=== PATIENT | female | born 1935 | race Caucasian/White ===

== ENCOUNTER 2019-12-07 10:37 | Inpatient (IN) | payer MEDICARE, OTHER ==
[2019-12-07] MEDS ORDERED: Morphine 4 MG/ML VIAL ONE ×2 (11:08→11:59)
--- NOTE | 2019-12-07 11:19 | RAD ---
CHEST ONE VIEW: History: Injury from trauma. Comparison: 08-02-02 FINDINGS: Heart size is normal. The lungs are clear. No confluent pneumonia, overt edema, or pleural effusion. IMPRESSION: No significant acute intrathoracic disease. POS: [facility]
--- NOTE | 2019-12-07 11:20 | RAD ---
AP PELVIS ONE VIEW: History: Injury from trauma, pain following a fall. FINDINGS: There is evidence for an irregular fracture through the left femoral neck with some displacement and foreshortening. The pelvis otherwise appears intact. The right hip appears unremarkable. IMPRESSION: Irregular minimally displaced left femoral neck fracture with foreshortening and varus deformity. POS: [facility]
--- NOTE | 2019-12-07 11:21 | RAD ---
LEFT HIP TWO VIEWS: History: Injury from a fall. FINDINGS: Minimally displaced irregular fracture through the left femoral neck with foreshortening and varus de formity. Minimally displaced irregular fracture through the left femoral neck with some foreshortening and mine us deformity. POS: [facility]
[2019-12-07 11:35] LABS: #Lymphocytes 0.9 thou/uL (1.20-3.40); #Monocytes 0.7 thou/uL (0.11-0.59); #Neutrophils 9.7 thou/uL (1.40-6.50); %Basophils 0.1 % (0.0-1.0); %Eosinophils 0.2 % (0.0-10.0); %Lymphocytes 7.6 % (21.0-51.0); %Monocytes 6.6 % (0.0-10.0); %Neutrophils 85.5 % (42.0-75.0); Hemoglobin 14.8 g/dL (12.0-16.0); Mean Corpuscular Hemoglobin 31.1 pg (27.0-31.0); Mean Corpuscular Volume 94.3 fL (78.0-98.0); Platelet Count 179 thou/uL (130-400); RBC Distribution Width 11.4 % (11.5-14.5); Red Blood Cell (RBC) Count 4.77 mill/uL (4.20-5.40); White Blood Cell (WBC) Count 11.3 thou/uL (4.8-10.8)
[2019-12-07 11:37] LABS: INR-International Normal Ratio 1.2; PTT 25.2 SEC (22.9-36.1)
--- NOTE | 2019-12-07 11:40 | CT ---
BRAIN CT WITHOUT IV CONTRAST: History: Injury from trauma. Patient is on blood thinners. FINDINGS: No focal mass or midline shift. No intra or extraaxial hemorrhage. Sinuses and mastoids are clear of acute process. IMPRESSION: No significant acute intracranial process. No mass or bleed. Mild atrophy. POS: [facility]
[2019-12-07 11:51] LABS: ALT (SGPT) 21 U/L (8-55); AST (SGOT) 25 U/L (5-34); Albumin 4.4 g/dL (3.4-4.8); Alkaline Phosphatase 122 U/L (40-110); Anion Gap 17 mmol/L (10-20); BUN (Urea Nitrogen) 19 mg/dL (9.8-20.1); Bilirubin, Total 0.9 mg/dL (0.2-1.2); Calc. Creatinine Clearance 0 mL/min (70-130); Calcium 9.4 mg/dL (7.8-10.44); Carbon Dioxide 21 mmol/L (23-31); Chloride 101 mmol/L (98-107); Estimated GFR-MDRD 56; Globulin 3.7 g/dL (2.4-3.5); Glucose 148 mg/dL (83-110); Potassium 4.5 mmol/L (3.5-5.1); Protein, Total 8.1 g/dL (6.0-8.3); Sodium 134 mmol/L (136-145)
[2019-12-07] MEDS ORDERED: Ondansetron ODT 4 MG TAB SL PRN (12:00)
[2019-12-07] MEDS ORDERED: Ondansetron PF 4 MG/2 ML Vial IVP PRN ×2 (12:00→15:29)
[2019-12-07] MEDS ORDERED: Labetalol HCl 100 MG/20 ML VIAL ONE (12:23)
--- NOTE | 2019-12-07 12:34 | CT ---
CERVICAL SPINE CT SCAN WITHOUT IV CONTRAST: History: Injury from trauma. FINDINGS: Multilevel disc osteophytosis and facet arthrosis with some variable severity canal, lateral recess a nd foraminal stenosis. No evidence for acute fracture or facet dislocation. No prevertebral soft tiss ue swelling. IMPRESSION: No fracture, dislocation, or other acute process. POS: [facility]
--- NOTE | 2019-12-07 12:34 | CT ---
LUMBAR SPINE CT SCAN WITHOUT IV CONTRAST: History: Injury from trauma. FINDINGS: Multilevel disc osteophytosis most marked at L4-5 with moderate to severe associated canal and latera l recess and foraminal stenosis. Moderate stenosis at the L3-4 level. Extensive facet arthrosis. No e vidence for acute fracture or dislocation. IMPRESSION: No acute fracture or dislocation. 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 POS: [facility]
--- NOTE | 2019-12-07 14:36 | HP ---
REQUESTING PHYSICIAN: Dr. Hodge. ATTENDING SURGEON: Dr. Sanchez. CONSULTATIONS: Orthopedics, Dr. Claudio. HISTORY OF PRESENT ILLNESS: The patient is an 84-year-old woman, who was in her living room, moving a blanket when she stepped on it causing her to slip and fall onto her left hip. Unfortunately, it was late at night and she was away from her , who could not hear her and she was not found until the next morning. The patient denied loss of consciousness or hitting her head. She was just unable to ambulate or contact her . She was eventually brought to the emergency department by ground EMS, where she underwent evaluation and examination and was noted to have a left hip fracture, at which time we were asked to evaluate the patient for admission and obtain Orthopedic consultation. ALLERGIES: NONE. CURRENT MEDICATIONS: 1. Simvastatin. 2. Lorazepam. 3. Trazodone. 4. Spironolactone. 5. Librax. 6. Amlodipine. 7. Metoprolol. 8. Savaysa. 9. Furosemide. 10. Fluoxetine. 11. L-thyroxine. PAST MEDICAL HISTORY: Hypothyroidism, hyperlipidemia, hypertension, atrial fibrillation, depression, and anxiety. PAST SURGICAL HISTORY: Appendectomy. SOCIAL HISTORY: The patient lives at home with her . She denies drug or tobacco use. She drinks "maybe" one glass of wine a day. REVIEW OF SYSTEMS: 10-point review of systems is negative as otherwise stated. PHYSICAL EXAMINATION: VITAL SIGNS: Blood pressure 159/99, heart rate 104, respirations 18, oxygen saturation is 96% on room air, and temperature is 98. GENERAL: The patient is resting comfortably in bed. She is awake, alert, conversant, and appropriate. [place] Coma Scale is 15. HEENT: Head is normocephalic and atraumatic. Eyes, extraocular motion intact. PERRLA bilaterally. Ears are atraumatic without discharge. Nose is atraumatic without discharge. Oropharynx is clear. NECK: Nontender. Trachea is midline. No JVD. CHEST: Clear to auscultation with good inspiratory and expiratory effort. HEART: Regular rate and rhythm. ABDOMEN: Soft, flat, nontender with active bowel sounds. PELVIS: Stable with tenderness to palpation to the left hip consistent with her fracture. EXTREMITIES: Neurovascularly intact x4. BACK: By report is atraumatic and nontender. LABORATORY FINDINGS: White blood cell count 11.3, hemoglobin 14.8, hematocrit 45.0, platelets 179. Sodium 134, potassium 4.5, chloride 101, CO2 of 21, BUN 19, creatinine 0.96, glucose 148. LFTs are unremarkable. PT 15, INR 1.2, PTT 25.2. RADIOGRAPHS: CT of the brain without contrast shows no acute intracranial process, mass or bleed. CT of the C-spine without contrast shows no fracture, dislocation, or other acute process. CT of the lumbar spine without contrast shows no acute fracture or dislocation. AP pelvis shows a minimally displaced left femoral neck fracture. Views of the left hip again display a minimally displaced irregular fracture through the left femoral neck with some foreshortening and varus deformity. AP chest x-ray shows no significant intrathoracic disease. ASSESSMENT AND PLAN: 1. Status post ground level fall with delayed presentation. 2. Left femoral neck fracture. 3. Acute pain secondary to above. 4. History of hypertension, hypothyroidism, anxiety, depression, and atrial fibrillation. 5. Bleeding dyscrasia secondary to Savaysa/edoxaban use. PLAN: Plan will be to admit the patient to the surgical floor due to her edoxaban use. She will not be able to have surgery today, but we will have surgery tomorrow. We will make her n.p.o. after midnight. We will do pain control, pulmonary toilet, gastritis, mechanical VTE prophylaxis. We will resume her other medications as indicated. The evaluation, examination, laboratory, and radiographic findings will be discussed with Dr. Sanchez after this dictation. Dr. Claudio has been made aware of the patient and agrees with the plan for surgery tomorrow. Job ID: [id number]
[2019-12-07] MEDS ORDERED: Dextrose 50% Abboject 50 ML SYRINGE SLOW IVP PRN (15:29)
[2019-12-07] MEDS ORDERED: Dextrose 5% in Water 1,000 ML IV PRN (15:29)
[2019-12-07] MEDS ORDERED: traMADol HCl 50 MG TAB PO PRN (15:29)
[2019-12-07] MEDS ORDERED: Ondansetron ODT 4 MG TAB PO PRN (15:29)
[2019-12-07] MEDS ORDERED: hydrALAZINE 20 MG/ML VIAL SLOW IVP PRN (15:29)
[2019-12-07] MEDS ORDERED: Morphine 2 MG/ML SYRINGE SLOW IVP PRN (15:29)
[2019-12-07] MEDS ORDERED: Cyclobenzaprine 10 MG TAB PO PRN (15:29)
[2019-12-07 15:35] VITALS: BMI 26.6
[2019-12-07] MEDS ORDERED: Furosemide 40 MG TAB PO PRN (16:18)
[2019-12-07] MEDS: Acetaminophen 325 MG TAB PO SCH ×2 (17:37→20:08)
[2019-12-07] MEDS: Ibuprofen 600 MG TAB PO SCH ×2 (17:37→23:51)
[2019-12-07] MEDS: Sodium Chloride 0.9% 1,000 ML IV SCH (17:37)
[2019-12-07] MEDS: Morphine 4 MG/ML VIAL SLOW IVP PRN (17:41)
--- NOTE | 2019-12-07 18:53 | CON ---
DATE OF CONSULTATION: 12/07/2019 CHIEF COMPLAINT: Left hip pain. HISTORY OF PRESENT ILLNESS: Ms. Hadley is an 84-year-old female who got up last night when she tripped and fell. She tripped over a blanket. She was unable to ambulate. She was unable to call her at that time. This morning, she was found and was taken to the emergency department by EMS. She had been found to have a displaced left femoral neck fracture. She had been admitted to the hospital now by the General Surgery and Trauma Service. She has been given pain medication. She has been comfortable recently. She does have hip pain with movement. She denies loss of consciousness. She normally ambulates without any assistive device. ALLERGIES: NO KNOWN DRUG ALLERGIES. MEDICATIONS: Please see chart. Of note, the patient is on a blood thinner called [employer]. PAST MEDICAL HISTORY: 1. Hyperlipidemia. 2. Hypertension. 3. Hypothyroidism. 4. AFib. 5. Depression. 6. Anxiety. PAST SURGICAL HISTORY: Appendectomy. SOCIAL HISTORY: The patient denies tobacco or drug use. She drinks minimal alcohol. REVIEW OF SYSTEMS: Positive for left hip pain with movement. Otherwise, negative 10-point review of systems. IMAGING STUDIES: X-rays of the left hip and pelvis demonstrate a displaced left femoral neck fracture with shortening. PHYSICAL EXAMINATION: VITAL SIGNS: Temperature is 98.4, pulse is 102, blood pressure is 165/90, and 96% on room air. GENERAL: She is alert, lying supine, in no apparent distress. RESPIRATORY: Breathing comfortably. ABDOMEN: Soft, nontender, and nondistended. HEENT: Normocephalic and atraumatic. CARDIOVASCULAR: Pulses palpable and regular peripherally. MUSCULOSKELETAL: The patient's left lower extremity is shortened and externally rotated. She has pain with hip motion. She has intact skin. She is able to flex and extend the foot and ankle. She has palpable dorsalis pedis pulse. Upper extremities are atraumatic. IMPRESSION: Left femoral neck fracture in an 84-year-old female. PLAN: At this point, the patient will need to go to the operating room. We will wait until tomorrow to give her blood thinner medication time to resolve. She will need a hemiarthroplasty of the hip to allow her to mobilize and promote early out of bed exercise. Goal is to prevent complications of prolonged bedrest and others. She is at risk for blood loss, nerve or vascular injury, hardware failure, dislocation, wound complications, and others. She wants to proceed with surgery. I will keep her n.p.o. at midnight. She will have antibiotics on-call to the operating room as well. Job ID: [id number]
[2019-12-07] MEDS: Famotidine 20 MG TAB PO SCH (20:07)
[2019-12-07] MEDS: Metoprolol Tartrate 25 MG TAB PO SCH (20:08)
[2019-12-07] MEDS: traZODone HCl 50 MG TAB PO SCH (20:08)
--- NOTE | 2019-12-07 21:43 | PRG ---
DATE OF SERVICE: SUBJECTIVE: Ms. Hadley is currently in surgical floor. Patient was seen on rounds this evening. Patient reports pain is well controlled. She is able to tolerate with her regular diet. Her vital signs stable. Urine adequate. OBJECTIVE: GENERAL: Currently, patient is lying in bed comfortable with no acute respiratory distress. VITAL SIGNS: Stable. LUNGS: Clear bilaterally. HEART: Regular rate and rhythm. ABDOMEN: Soft. Nondistended. EXTREMITIES: Neurovascularly intact x4. NEUROLOGIC: No focal neurologic deficits. ASSESSMENT: 1. Status post ground level fall. 2. Left femoral neck fracture. 3. History of hypertension; hypothyroid; anxiety and depression; and atrial fibrillation, on edoxaban use. PLAN: Patient will be continued supportive care. Continue nonpharmacological DVT prophylaxis. Await for surgery tomorrow. Job ID: [id number]
[2019-12-08] MEDS: Sodium Chloride 0.9% 1,000 ML IV SCH ×4 (01:59→13:08)
[2019-12-08] MEDS: Morphine 4 MG/ML VIAL SLOW IVP PRN (03:21)
[2019-12-08] MEDS: Acetaminophen 325 MG TAB PO SCH ×4 (04:44→20:50)
[2019-12-08] MEDS: Levothyroxine Sodium 50 MCG TAB PO SCH (05:49)
[2019-12-08] MEDS: Metoprolol Tartrate 25 MG TAB PO SCH ×2 (05:49→20:51)
[2019-12-08 07:20] LABS: #Eosinphils 0.1 thou/uL (0.0-0.7); #Lymphocytes 1.2 thou/uL (1.20-3.40); #Monocytes 0.8 thou/uL (0.11-0.59); #Neutrophils 6.6 thou/uL (1.40-6.50); %Basophils 0.4 % (0.0-1.0); %Eosinophils 1.3 % (0.0-10.0); %Lymphocytes 14.2 % (21.0-51.0); %Monocytes 9.1 % (0.0-10.0); Hemoglobin 12.9 g/dL (12.0-16.0); Mean Corpuscular HGB CONC 32.8 g/dL (32.0-36.0); Mean Corpuscular Hemoglobin 31.7 pg (27.0-31.0); Mean Corpuscular Volume 96.6 fL (78.0-98.0); Mean Platelet Volume 8.2 fL (7.4-10.4); Platelet Count 152 thou/uL (130-400); RBC Distribution Width 11.8 % (11.5-14.5); Red Blood Cell (RBC) Count 4.08 mill/uL (4.20-5.40); White Blood Cell (WBC) Count 8.8 thou/uL (4.8-10.8)
[2019-12-08] MEDS ORDERED: Lidocaine 2% Jelly 5 ML TUBE ONE (07:34)
[2019-12-08] MEDS ORDERED: Fentanyl 100 MCG/2 ML VIAL ONE (07:34)
[2019-12-08 07:42] LABS: Anion Gap 13 mmol/L (10-20); BUN (Urea Nitrogen) 25 mg/dL (9.8-20.1); Calc. Creatinine Clearance 34 mL/min (70-130); Calcium 8.6 mg/dL (7.8-10.44); Carbon Dioxide 26 mmol/L (23-31); Chloride 103 mmol/L (98-107); Estimated GFR-MDRD 37; Glucose 116 mg/dL (83-110); Potassium 4.8 mmol/L (3.5-5.1); Sodium 137 mmol/L (136-145)
[2019-12-08] MEDS ORDERED: CEFAZOLIN 2 GM in Premix Bag 1 BAG IVPB SCH (08:00)
--- NOTE | 2019-12-08 08:51 | PDOC.EVN ---
Event Note - Event Note Event Note: Pt seen and examined. To OR today for orif femur
[2019-12-08] MEDS ORDERED: Ondansetron PF 4 MG/2 ML Vial ONE (09:31)
[2019-12-08] MEDS ORDERED: PROPOFOL 200 MG/20 ML VIAL ONE (09:31)
[2019-12-08] MEDS ORDERED: EPHEDRINE 25 MG/5 ML SYRINGE ONE (09:31)
[2019-12-08] MEDS ORDERED: PHENYLEPHRINE-NS 100 MCG/ML 10 ML SYRINGE ONE (09:31)
[2019-12-08] MEDS ORDERED: Rocuronium Bromide 10 MG/ML (10ML VIAL) ONE (09:31)
[2019-12-08] MEDS ORDERED: Dexamethasone 20 MG/5 ML VIAL ONE (09:31)
[2019-12-08] MEDS ORDERED: Succinylcholine Chloride 20 MG/ML 10 ml SYRINGE FS ONE (09:31)
[2019-12-08] MEDS ORDERED: Lidocaine 1% PF 5 ML VIAL ONE (09:31)
[2019-12-08] MEDS ORDERED: Glycopyrrolate 0.2 MG/ML 5 ML SYRINGE ONE (09:31)
[2019-12-08] MEDS ORDERED: Ondansetron HCl/PF 4 MG/2 ML Vial IVP PRN (09:50)
[2019-12-08] MEDS ORDERED: Promethazine HCl 25 MG/ML VIAL IM PRN (09:50)
[2019-12-08] MEDS ORDERED: Promethazine HCl 25 MG/ML VIAL SLOW IVP PRN (09:50)
--- NOTE | 2019-12-08 10:54 | RAD ---
LEFT HIP TWO VIEWS: HISTORY: Status post left hip replacement. FINDINGS/IMPRESSION: Recent total left hip replacement without dislocation or periprosthetic fracture. POS: [facility]
--- NOTE | 2019-12-08 10:54 | RAD ---
AP PELVIS ONE VIEW: HISTORY: Status post hemiarthroplasty. COMPARISON: 12/07/2019 FINDINGS: Status post left total hip replacement without dislocation or periprosthetic fracture or other acute process. IMPRESSION: Status post left total hip replacement. POS: [facility]
[2019-12-08] MEDS: Ibuprofen 600 MG TAB PO SCH ×3 (11:41→22:27)
[2019-12-08] MEDS: FLUoxetine HCl 20 MG CAP PO SCH (11:42)
[2019-12-08] MEDS: chlordiazePOXIDE/Clidinium Bromide Capsule PO SCH (11:42)
[2019-12-08] MEDS: Amlodipine 5 MG TAB PO SCH (11:42)
[2019-12-08] MEDS: Famotidine 20 MG TAB PO SCH (11:42)
[2019-12-08] MEDS: Simvastatin 20 MG TAB PO SCH (11:43)
[2019-12-08] MEDS: CEFAZOLIN 2 GM in Premix Bag 1 BAG IVPB SCH ×2 (11:45→22:25)
--- NOTE | 2019-12-08 13:51 | PRG ---
DATE OF SERVICE: 12/08/2019 SUBJECTIVE: The patient is hospital day #2, status post ground-level fall in which she sustained a left femoral neck fracture. Today, she underwent operative procedure by Dr. Claudio. She has just returned to the surgical floor. She reportedly tolerated her procedure well. She has a diet order, and her pain is currently controlled. They will re-evaluate this as she awakens. OBJECTIVE: VITAL SIGNS: Temperature is 98.4, heart rate 98, blood pressure 114/70, respirations 20, and oxygen saturation 98% on 2 L via nasal cannula. GENERAL: The patient is resting comfortably in bed. She is asleep and drowsy, but will awaken and answer questions for me. HEENT: Unremarkable. LUNGS: Clear to auscultation bilaterally with moderate inspiratory and expiratory effort. HEART: Irregularly irregular rate and rhythm consistent with her atrial fibrillation. ABDOMEN: Soft and nondistended with hypoactive bowel sounds. EXTREMITIES: Neurovascularly intact x4. Postop dressing is clean, dry, and intact. LABORATORY DATA: White blood cell count 8.8, hemoglobin 12.9, hematocrit 39.4, platelets 152. Sodium 137, potassium 4.8, chloride 103, CO2 of 26, BUN 25, creatinine 1.37, and glucose 116. There are no radiographs reviewed this morning. ASSESSMENT AND PLAN: 1. Hospital day #2, status post ground-level fall. 2. Immediately postop from open reduction and internal fixation of left femoral neck fracture. 3. History of hypertension, hypothyroidism, anxiety, depression, and atrial fibrillation. 4. Bleeding dyscrasia, secondary to Savaysa/edoxaban use. 5. Acute kidney injury. PLAN: Plan will be to repeat the patient's labs this afternoon in light of her edoxaban use and to recheck her renal function. The patient had not received any nephrotoxic medications to include IV contrast or NSAIDs, and she was hydrated overnight. We will continue hydration. Encourage physical and occupational therapy. Resume diet and discuss placement tomorrow. Job ID: [id number]
--- NOTE | 2019-12-08 15:14 | OP ---
DATE OF PROCEDURE: 12/08/2019 OPERATION: Left hip bipolar hemiarthroplasty. PREOPERATIVE DIAGNOSIS: Left femoral neck fracture. POSTOPERATIVE DIAGNOSIS: Left femoral neck fracture. COMPLICATIONS: None. ESTIMATED BLOOD LOSS: 150 mL. CRATE OPENER: Mayra Alvarenga PA-C. IMPLANTS: DePuy size 5 basic press-fit [place] stem, size 1.5 femoral head with a 41 mm bipolar shell. INDICATIONS: Ms. Hadley is an 84-year-old female, who has fallen and fractured her left femoral neck. She has been indicated for hemiarthroplasty of the hip to restore the ability to mobilize and prevent complications of prolonged bedrest. Risks have been reviewed. Risks to include infection, pain, scarring, nerve or vascular injury, fracture, DVT, instability of the hip, and others. DESCRIPTION OF OPERATION: Ms. Hadley was identified in the preoperative holding area. Her correct extremity was marked. She was carried to the operating room. She was positioned supine. General anesthesia was induced. A multidisciplinary time-out was performed. The left lower extremity was prepped and draped in sterile fashion. We began the procedure with a posterior approach to the hip. We dissected down through the subcutaneous tissues to the fascia. The fascia was opened. We exposed the short external rotators of the hip at this point. We then proceeded to expose the capsule. A capsulotomy was performed. We then removed the broken femoral head and neck fragments. We performed a new osteotomy with an oscillating saw. At this point, we proceeded to prepare the canal. We opened the proximal femur. We reamed sequentially up to a size 5. We then broached from a size 2 to a size 5. We trialed off our size 5 broach. At this point, we reduced the hip. Leg length was appropriate. The patient's hip was stable in all rotation. We removed trial components. We then placed our final components. We again reduced the hip and checked stability and leg lengths. We were satisfied with this. We then closed with #5 Ethibond suture through drill holes in the trochanter. We closed the capsule and the piriformis tendon. Finally, we finished closure in layers. A sterile dressing was applied. The patient was taken to the recovery room at this point in good condition. Job ID: [id number]
[2019-12-08 15:15] LABS: #Basophils 0.1 thou/uL (0.0-0.2); #Lymphocytes 0.4 thou/uL (1.20-3.40); #Monocytes 0.4 thou/uL (0.11-0.59); #Neutrophils 8.3 thou/uL (1.40-6.50); %Eosinophils 0.2 % (0.0-10.0); %Lymphocytes 4.2 % (21.0-51.0); %Monocytes 3.9 % (0.0-10.0); %Neutrophils 90.7 % (42.0-75.0); Hemoglobin 11.5 g/dL (12.0-16.0); Mean Corpuscular HGB CONC 32.5 g/dL (32.0-36.0); Mean Corpuscular Hemoglobin 31.5 pg (27.0-31.0); Mean Corpuscular Volume 96.8 fL (78.0-98.0); Platelet Count 139 thou/uL (130-400); RBC Distribution Width 11.7 % (11.5-14.5); Red Blood Cell (RBC) Count 3.66 mill/uL (4.20-5.40); White Blood Cell (WBC) Count 9.1 thou/uL (4.8-10.8)
[2019-12-08 15:34] LABS: Anion Gap 14 mmol/L (10-20); BUN (Urea Nitrogen) 26 mg/dL (9.8-20.1); Calc. Creatinine Clearance 37 mL/min (70-130); Calcium 8.2 mg/dL (7.8-10.44); Carbon Dioxide 23 mmol/L (23-31); Chloride 104 mmol/L (98-107); Estimated GFR-MDRD 40; Glucose 146 mg/dL (83-110); Magnesium 1.9 mg/dL (1.6-2.6); Phosphorus 3.7 mg/dL (2.3-4.7); Potassium 5.1 mmol/L (3.5-5.1); Sodium 136 mmol/L (136-145)
[2019-12-08] MEDS ORDERED: Magnesium 2 GM/50 ML 2 GM in Premix Bag 1 BAG IVPB SCH (16:00)
[2019-12-08] MEDS ORDERED: Magnesium Sulfate 2 GM in Sodium Chloride 0.9% 250 ML 250 ML IVPB SCH (16:00)
[2019-12-08] MEDS: traZODone HCl 50 MG TAB PO SCH (20:51)
[2019-12-08] MEDS: traMADol HCl 50 MG TAB PO PRN (22:31)
[2019-12-09] MEDS: Sodium Chloride 0.9% 1,000 ML IV SCH (00:46)
[2019-12-09] MEDS: Lorazepam 1 MG TAB PO PRN ×2 (00:50→14:27)
--- NOTE | 2019-12-09 01:51 | PRG ---
DATE OF SERVICE: 12/08/2019 SUBJECTIVE: Ms. Hadley remained in surgical floor. The patient was seen on round this evening. The patient went back from the OR this evening after open reduction and internal fixation of the left femoral neck fracture. The patient reports pain is well controlled. She tolerated with her regular diet. She has not yet worked with physical therapy and occupational therapy. Blood pressure a little bit soft in which she has been on hypertension medication and went on fluid overnight tonight. OBJECTIVE: GENERAL: Currently, the patient lying in bed comfortable with no acute respiratory distress. VITAL SIGNS: Temperature 98, heart rate 88, blood pressure 92/58, O2 saturation 98% on room air. LUNGS: Clear bilaterally. HEART: Regular rate and rhythm. ABDOMEN: Soft. Nondistended. EXTREMITIES: Neurovascularly intact x4. NEUROLOGY: No focal neurology deficits. SKIN: Postop dressing clean, dry, intact. ASSESSMENT: 1. Status post ground level fall. 2. Left femoral neck fracture, status post ORIF of left femur neck fracture. 3. History of hypertension, hypothyroid, anxiety, depression, and atrial fibrillation. PLAN: Continue supportive care. Continue pain control. We will check a cortisol level tomorrow. Continue on hypertension medication. Continue IV fluid overnight tonight. Anticipate working with physical therapy and occupational therapy tomorrow. The patient will be working with the caser shoe [employer] tomorrow placement plan. Job ID: [id number]
[2019-12-09] MEDS: Acetaminophen 325 MG TAB PO SCH ×4 (03:22→20:32)
[2019-12-09] MEDS: Levothyroxine Sodium 50 MCG TAB PO SCH (05:56)
[2019-12-09 06:31] LABS: #Lymphocytes 0.6 thou/uL (1.20-3.40); #Monocytes 0.5 thou/uL (0.11-0.59); #Neutrophils 5.6 thou/uL (1.40-6.50); %Eosinophils 0.1 % (0.0-10.0); %Lymphocytes 9.1 % (21.0-51.0); %Monocytes 7.8 % (0.0-10.0); Hemoglobin 10.1 g/dL (12.0-16.0); Mean Corpuscular HGB CONC 32.4 g/dL (32.0-36.0); Mean Corpuscular Hemoglobin 31.7 pg (27.0-31.0); Mean Corpuscular Volume 97.9 fL (78.0-98.0); Mean Platelet Volume 8.5 fL (7.4-10.4); Platelet Count 126 thou/uL (130-400); RBC Distribution Width 11.8 % (11.5-14.5); White Blood Cell (WBC) Count 6.8 thou/uL (4.8-10.8)
[2019-12-09 06:56] LABS: Anion Gap 11 mmol/L (10-20); BUN (Urea Nitrogen) 28 mg/dL (9.8-20.1); Calc. Creatinine Clearance 32 mL/min (70-130); Calcium 8.1 mg/dL (7.8-10.44); Carbon Dioxide 22 mmol/L (23-31); Chloride 107 mmol/L (98-107); Estimated GFR-MDRD 34; Glucose 128 mg/dL (83-110); Magnesium 2.8 mg/dL (1.6-2.6); Phosphorus 2.8 mg/dL (2.3-4.7); Sodium 135 mmol/L (136-145)
[2019-12-09] MEDS: Famotidine 20 MG TAB PO SCH (08:12)
[2019-12-09] MEDS: FLUoxetine HCl 20 MG CAP PO SCH (08:13)
[2019-12-09] MEDS: Simvastatin 20 MG TAB PO SCH (08:13)
[2019-12-09] MEDS: chlordiazePOXIDE/Clidinium Bromide Capsule PO SCH (08:14)
[2019-12-09] MEDS: Metoprolol Tartrate 25 MG TAB PO SCH ×2 (08:14→20:32)
[2019-12-09] MEDS: Amlodipine 5 MG TAB PO SCH (08:14)
[2019-12-09] MEDS ORDERED: traMADol HCl 50 MG TAB PO PRN (08:45)
[2019-12-09] MEDS ORDERED: Sodium Bicarbonate 150 MEQ in Dextrose 5% in Water 1,000 ML IV SCH (08:45)
[2019-12-09] MEDS ORDERED: Spironolactone 25 MG TAB PO SCH (09:00)
[2019-12-09] MEDS: Polyethylene Glycol 3350 17 GM Packet PO SCH (09:06)
[2019-12-09] MEDS: Senokot S 8.6-50 MG TAB PO SCH ×2 (09:06→20:33)
[2019-12-09] MEDS ORDERED: EDOXABAN TOSYLATE 30 MG PO SCH (11:45)
--- NOTE | 2019-12-09 13:23 | PRG ---
DATE OF SERVICE: 12/09/2019 SUBJECTIVE: The patient is hospital day 3, postop day 1, status post ground level fall, she sustained a left femoral neck fracture. Yesterday, she underwent left hip bipolar hemiarthroplasty, which she did well with. Her labs this morning showed slightly increase again in her creatinine, which the patient states that she has had a history of this in the past. She has a nephrologists that she sees. Otherwise, she is tolerating a diet. Her pain is controlled. She began working with physical and occupational therapy. She is currently awaiting evaluation for inpatient rehab. PHYSICAL EXAMINATION: VITAL SIGNS: Temperature 97.6, heart rate 96, blood pressure 105/56, respirations 18, oxygen saturations 94% on room air. GENERAL: The patient is resting comfortably in bed. She is awake, alert, oriented, conversant, and appropriate. Her [place] Coma Scale is 15. HEENT: Unremarkable. LUNGS: Clear to auscultation with good inspiratory and expiratory effort. HEART: Regular rate and rhythm. ABDOMEN: Soft, flat, nontender with active bowel sounds. EXTREMITIES: Neurovascularly intact x4. Postop dressing is clean, dry, intact. LABORATORY FINDINGS: White blood cell count 6.8, hemoglobin 10.1, hematocrit 31.3, platelets 126. Sodium 135, potassium 5.0, chloride 107, CO2 of 22, BUN 28, creatinine 1.47, glucose 128, phosphorus 2.8, magnesium 2.8. There are no radiographs reviewed this morning. ASSESSMENT: 1. Hospital day 3, status post ground level fall. 2. Postoperative day 1, status post left hip hemiarthroplasty for left femoral neck fracture. 3. History of hypertension, hypothyroidism, anxiety, depression, and atrial fibrillation. 4. Acute on chronic kidney injury. 5. Bleeding dyscrasia secondary to edoxaban use. PLAN: Plan will be to continue supportive care. Resume all home medications. She will be started on a bicarbonate drip overnight. We will recheck her labs in the morning. We will have her evaluated for placement. The evaluation, examination, laboratory, and radiographic findings were done with Dr. Suazo this morning during rounds. Job ID: [id number]
[2019-12-09] MEDS: traZODone HCl 50 MG TAB PO SCH (20:32)
--- NOTE | 2019-12-10 00:37 | PRG ---
DATE OF SERVICE: 12/09/2019 SUBJECTIVE: Ms. Hadley remained in the surgical floor. The patient was seen on rounds this evening. The patient reports pain is well controlled. She is able to tolerate with her regular diet. Vital signs have been stable. Her urine is adequate. The patient denies nausea or vomiting. OBJECTIVE: GENERAL: Currently, the patient is lying in bed ,comfortable with no acute respiratory distress. VITAL SIGNS: Stable. LUNGS: Clear bilaterally. HEART: Regular rate and rhythm. ABDOMEN: Soft, nondistended. EXTREMITIES: Neurovascularly intact x4. Postop dressing clean, dry, intact. ASSESSMENT: 1. Status post ground level fall. 2. Left hip fracture, status post open reduction and internal fixation of left hip fracture. 3. History of hypertension, hypothyroid, anxiety, depression, and atrial fibrillation. PLAN: Continue supportive care. Continue pain control. Continue DVT prophylaxis. Anticipate placement in rehabilitation facility tomorrow. Job ID: [id number]
[2019-12-10] MEDS: Acetaminophen 325 MG TAB PO SCH ×3 (03:47→13:31)
[2019-12-10] MEDS: Levothyroxine Sodium 50 MCG TAB PO SCH (05:28)
[2019-12-10 05:54] LABS: #Eosinphils 0.1 thou/uL (0.0-0.7); #Monocytes 0.6 thou/uL (0.11-0.59); #Neutrophils 3.4 thou/uL (1.40-6.50); %Basophils 0.3 % (0.0-1.0); %Lymphocytes 19.9 % (21.0-51.0); %Monocytes 11.5 % (0.0-10.0); %Neutrophils 66.3 % (42.0-75.0); Hemoglobin 9.3 g/dL (12.0-16.0); Mean Corpuscular HGB CONC 32.5 g/dL (32.0-36.0); Mean Corpuscular Hemoglobin 31.7 pg (27.0-31.0); Mean Corpuscular Volume 97.6 fL (78.0-98.0); Mean Platelet Volume 8.3 fL (7.4-10.4); Platelet Count 113 thou/uL (130-400); RBC Distribution Width 11.8 % (11.5-14.5); Red Blood Cell (RBC) Count 2.92 mill/uL (4.20-5.40); White Blood Cell (WBC) Count 5.1 thou/uL (4.8-10.8)
[2019-12-10 06:10] LABS: Anion Gap 13 mmol/L (10-20); BUN (Urea Nitrogen) 23 mg/dL (9.8-20.1); Calc. Creatinine Clearance 49 mL/min (70-130); Carbon Dioxide 26 mmol/L (23-31); Chloride 102 mmol/L (98-107); Estimated GFR-MDRD 56; Glucose 99 mg/dL (83-110); Magnesium 2.2 mg/dL (1.6-2.6); Potassium 3.6 mmol/L (3.5-5.1); Sodium 137 mmol/L (136-145)
[2019-12-10] MEDS ORDERED: Amlodipine 5 MG TAB PO SCH (07:25)
[2019-12-10] MEDS ORDERED: PHOS-NAK 1 PKT PACK PO SCH (08:15)
[2019-12-10] MEDS: Polyethylene Glycol 3350 17 GM Packet PO SCH (08:54)
[2019-12-10] MEDS: Famotidine 20 MG TAB PO SCH (08:57)
[2019-12-10] MEDS: FLUoxetine HCl 20 MG CAP PO SCH (08:58)
[2019-12-10] MEDS: Senokot S 8.6-50 MG TAB PO SCH (08:59)
[2019-12-10] MEDS: Simvastatin 20 MG TAB PO SCH (08:59)
[2019-12-10] MEDS: chlordiazePOXIDE/Clidinium Bromide Capsule PO SCH (09:00)
[2019-12-10] MEDS ORDERED: Metoprolol Tartrate 25 MG TAB PO SCH (09:00)
[2019-12-10] MEDS ORDERED: EDOXABAN TOSYLATE 30 MG PO SCH (09:00)
[2019-12-10] MEDS: traMADol HCl 50 MG TAB PO PRN (11:00)
[2019-12-10 12:26] VITALS: BP 127/78; TEMP 98.4
--- NOTE | 2019-12-10 14:52 | DIS ---
DATE OF ADMISSION: 12/07/2019 DATE OF DISCHARGE: 12/10/2019 ADMISSION DIAGNOSES: Mechanical fall from standing, left femoral neck fracture. DISCHARGE DIAGNOSES: 1. Mechanical fall from standing, left femoral neck fracture. 2. Acute kidney injury on chronic kidney disease. CONSULTING PHYSICIAN: Dr. Claudio of Orthopedic surgery. PROCEDURES: The patient went to the OR on December 08, 2019, and had a left hip bipolar hemiarthroplasty. HOSPITAL COURSE: The patient is an 84-year-old female, who presented to the emergency department after a mechanical fall, was found to have a left femoral neck fracture. She went to the OR the day after admission with Dr. Claudio and received a left hip bipolar hemiarthroplasty. On that day, the patient also developed an acute kidney injury due to dehydration and received fluid resuscitation. She worked with Physical and Occupational Therapy and it was deemed that she was safe to be discharged to acute rehab facility. She did receive a bicarb drip and ultimately her acute kidney injury on chronic kidney disease did resolve. She was discharged to rehab and restarted on all of her home medications. The patient did receive tramadol to be continued at her rehab facility. The [place] Prescription Monitoring Program was accessed and the patient is not receiving any other prescriptions for pain medications. She does have a prescription for Ativan which she takes as needed and has not been abusing. DISCHARGE DISPOSITION: Acute rehab. DISCHARGE CONDITION: Satisfactory. PHYSICAL EXAMINATION: VITAL SIGNS: Temperature 98.7, pulse 94, respirations 18, oxygen saturation 94% on room air, blood pressure 128/78. GENERAL: Well-appearing elderly female, sitting up in bed, having breakfast with no signs of acute distress. PULMONARY: Equal chest rise and fall. No signs of acute respiratory distress. CARDIAC: Regular rate and rhythm. GI: Abdomen is soft, nontender, nondistended. EXTREMITIES: 2+ pulses in all extremities. Gross motor sensation is intact. No significant swelling noted. NEURO: GCS is 15. Pupils are equal, round, and reactive to light bilaterally. DISCHARGE INSTRUCTIONS: The patient was discharged to acute rehab facility. She is weightbearing as tolerated in all extremities with posterior hip precautions to the left lower extremity. She has a regular diet. She is to have PT/OT. She can use an incentive spirometer and a walker. DISCHARGE MEDICATIONS: Include; 1. Tylenol. 2. Norvasc. 3. Chlordiazepoxide/clidinium. 4. Flexeril. 5. Prozac. 6. Synthroid. 7. Lorazepam. 8. Metoprolol. 9. MiraLAX. 10. Senokot-S. 11. Simvastatin. 12. Spironolactone. 13. Trazodone. 14. Edoxaban. 15. Lasix. 16. Tramadol. FOLLOWUP APPOINTMENTS: The patient is to follow up with Dr. Claudio. No need for followup with Trauma Surgery. This is merely a summary of the patient's hospitalization. For full details, please see her medical record in its entirety. Job ID: [id number]
== END 2019-12-10 13:45 | DRG 470 ==
LOC: ERS 10:37 → SURG A 12:13
PROVIDERS: ADMIT Surgery; ATTEND Surgery
PROC: 0SRS0JA Replacement of Left Hip Joint, Femoral Surface with Synthetic Substitute, Uncemented, Open Approach (ICD-10-PCS; principal; 2019-12-08)
DX: S72.002A Fracture of unspecified part of neck of left femur, initial encounter for closed fracture (principal); N17.9 Acute kidney failure, unspecified; D68.32 Hemorrhagic disorder due to extrinsic circulating anticoagulants; W01.0XXA Fall on same level from slipping, tripping and stumbling without subsequent striking against object, initial encounter; E03.9 Hypothyroidism, unspecified; I48.91 Unspecified atrial fibrillation; E78.5 Hyperlipidemia, unspecified; N18.9 Chronic kidney disease, unspecified; I12.9 Hypertensive chronic kidney disease with stage 1 through stage 4 chronic kidney disease, or unspecified chronic kidney disease; F41.9 Anxiety disorder, unspecified; F32.9 Major depressive disorder, single episode, unspecified; T45.515A Adverse effect of anticoagulants, initial encounter; Y92.018 Other place in single-family (private) house as the place of occurrence of the external cause; E86.0 Dehydration; Z79.890 Hormone replacement therapy; Z90.49 Acquired absence of other specified parts of digestive tract; Z79.899 Other long term (current) drug therapy
CPT/HCPCS: 36415; 70450; 71045; 72125; 72131; 72170; 80048; 80053; 82533; 83735; 84100; 85025; 85610; 85730; 86850; 86900; 86901; 93005; 96374; 96375; 96376; G0390; J0690; J1100; J2001; J2270; J2405; J2704; J3010; J3475; J7070

== ENCOUNTER 2020-05-13 10:32 | Outpatient (CLI) | payer MEDICARE, OTHER ==
--- NOTE | 2020-05-13 12:04 | ULT ---
BILATERAL RENAL ULTRASOUND: Date: 05/13/2020 HISTORY: Acute kidney failure. FINDINGS: Right kidney measures 8.1 cm in length and left kidney measures 8.2 cm in length. No focal mass or hy dronephrosis seen on either side. Urinary bladder is unremarkable. IMPRESSION: No evidence of high grade obstruction. POS: [facility]
== END 2020-05-13 10:33 | disposition home or self-care (01) ==
LOC: BICULT 10:32
PROVIDERS: ATTEND Internal Medicine Nephrology
DX: N17.9 Acute kidney failure, unspecified (principal)
CPT/HCPCS: 76770

== ENCOUNTER 2025-06-03 12:23 | Outpatient (CLI) | payer MEDICARE | END 2025-06-03 12:24 | disposition home or self-care (01) | LOC: BICMAMMO 12:23 | PROVIDERS: ATTEND Physician Assistant | DX: M81.0 Age-related osteoporosis without current pathological fracture (principal); M85.851 Other specified disorders of bone density and structure, right thigh | CPT/HCPCS: 77080 ==